=== PATIENT | female | born 2000 | race African-American/Black ===

== ENCOUNTER → 2020-10-01 08:49 | Outpatient (CLI) | payer OTHER, SELFPAY ==
--- NOTE | 2020-10-01 | DI.MRI.S_ITS ---
PROCEDURE: MR HEAD/BRAIN WO CON INDICATIONS: Chronic post-traumatic headache, not intractable TECHNIQUE: Noncontrast axial T1 spin echo, axial T2 fast spin echo, sagittal and axial FLAIR, coronal T2 fast spin echo, axial gradient echo, axial diffusion and ADC through the brain. COMPARISON: None. FINDINGS: Image quality: Excellent. CSF Spaces: Basal cisterns are patent. No extra-axial fluid collections. Ventricles are normal in size and shape. Brain: No intracranial masses or hemorrhage. Grady/white matter interface is normal. Brainstem appears normal. Diffusion-weighted images demonstrate no acute ischemic insult. No chronic ischemic insults. Normal intravascular flow voids are present. Skull and face: Calvarium has normal marrow signal. Orbits appear normal. Sinuses: Sinuses and mastoids are clear. IMPRESSION: 1. Negative brain MRI. No explanation for headache. 2. No acute process. No recent infarct. Dictated by: Lenny Lara M.D. on 10/01/2020 at 10:53 Approved by: Lenny Lara M.D. on 10/01/2020 at 10:54
== END ==
PROVIDERS: Family Provider Pediatrics; PCP Pediatrics; Referring Provider Pediatrics; Visit Provider Family Medicine
DX: G44.329 Chronic post-traumatic headache, not intractable (principal)
CPT/HCPCS: 70551

== ENCOUNTER → 2020-11-14 07:57 | Outpatient (CLI) | payer OTHER, SELFPAY ==
--- NOTE | 2020-11-14 07:59 | DI.US.S_ITS ---
PROCEDURE: US OB <= 14 WEEKS FETUS INDICATIONS: BLEEDING DURING . NO CARE OUTSIDE/PRIOR DATING DATA: Last menstrual period (LMP): Not available. LMP-based estimated date of delivery (SANDRA): Not available. First dating scan (date and location): n.a. . Estimated date of delivery (SANDRA) from first dating scan: n.a. TECHNIQUE: Real-time scanning was performed of the fetus and maternal pelvic organs, with image documentation. Endovaginal scanning was also performed to better visualize the fetus and maternal ovaries. COMPARISON: None. FINDINGS: There is no intrauterine gestational sac within the endometrial cavity. Uterus measures 7.2 x 3.6 x 4.5 cm. Endometrial complex measures 5 mm in thickness. Measurement variability in dating: +/- 4 weeks by LMP, +/- 7 days by mean sac diameter (use before 6 weeks gestation if crown-rump length not able to be measured), +/- 5 days by crown-rump length (up to 8 weeks 6 days gestation), +/- 7 days by crown-rump length (up to 13 weeks 6 days gestation). Maternal organs: Right ovary measures 3.8 x 1.2 x 2.3 cm. Left ovary measures 2.8 x 2.3 x 2.0 cm. There are ovarian follicles bilaterally. Limited images through the kidneys demonstrate no hydronephrosis. No free-fluid in cul-de-sac or adnexa. IMPRESSION: 1. No intrauterine or ectopic is identified. Please correlate with quantitative serum beta HCG. No findings to suggest retained product of conception. 2. Normal uterus and ovaries. Dictated by: Josseline Boothe M.D. on 11/14/2020 at 14:06 Approved by: Josseline Boothe M.D. on 11/14/2020 at 14:22
== END ==
LOC: US 07:58
PROVIDERS: Family Provider Pediatrics; PCP Pediatrics; Referring Provider Obstetrics & Gynecology; Visit Provider Obstetrics & Gynecology
DX: O20.9 Hemorrhage in early pregnancy, unspecified (principal); O09.30 Supervision of pregnancy with insufficient antenatal care, unspecified trimester
CPT/HCPCS: 76801; 76817

== ENCOUNTER → 2020-12-30 10:02 | Outpatient (CLI) | payer OTHER, SELFPAY ==
[2020-12-30 11:05] LABS: Add Manual Diff / Slide Review NO; Basophils Absolute Auto 0 /uL (0-100); Basophils Percent Auto 1.4 % (0-2); Eosinophils Absolute Auto 0 /uL (0-450); Hematocrit 36.3 % (36-46); Lymphocytes Absolute Auto 1200 /uL (1100-4500); Lymphocytes Percent Auto 45.9 % (25-40); Mean Corpuscular Hemoglobin 31.5 PG (26-34); Mean Corpuscular Volume 95.5 fL (80-100); Monocytes Absolute Auto 200 /uL (0-900); Neutrophils Absolute Auto 1100 /uL (1500-7000); Neutrophils Percent Auto 43.7 % (50-75); Platelet Count 225 X10^3/uL (150-400); Red Cell Distribution Width 12.6 % (11.6-14.8); White Blood Cell Count 2.5 X10^3/uL (4.5-11.0)
[2020-12-30 11:22] LABS: Alanine Aminotransferase 20 IU/L (<35); Albumin 4.8 g/dL (3.5-5.0); Albumin Globulin Ratio 1.2 (1.0-2.8); Alkaline Phosphatase 62 U/L (38-126); Aspartate Aminotransferase 35 IU/L (14-36); BUN Creatinine Ratio 8.8 (6-22); Bilirubin Total 0.4 mg/dL (0.2-1.3); Blood Urea Nitrogen 6 mg/dL (7-17); Calcium 9.9 mg/dL (8.4-10.2); Carbon Dioxide 27 mmol/L (22-32); Chloride 104 mmol/L (98-107); Estimated Glomerular Filt Rate > 60.0 mL/min (>60); Glucose 93 mg/dL (70-100); HEMOLYSIS < 15 (0-50); Potassium 3.9 mmol/L (3.4-5.1); Sodium 137 mmol/L (137-145); Total Protein 8.8 g/dL (6.3-8.2)
[2020-12-30 13:31] LABS: Erythrocyte Sedimentation Rate 18 MM/HR (0-20)
[2020-12-30 16:36] LABS: Hepatitis B Surface Antigen NEGATIVE s/c (NEGATIVE)
[2020-12-30 17:06] LABS: HIV 1 & 2 Ab/Ag 4th Gen Combo NEGATIVE (NEGATIVE); Hep C Virus Ab w/Reflex Quant NEGATIVE s/c (NEGATIVE)
[2020-12-31 04:50] LABS: HSV 2 IGG AB < 0.91 index (0.00-0.90)
[2020-12-31 08:08] LABS: RPR Screen Non Reactive (Non Reactive)
[2021-01-01 03:03] LABS: Chlamydia trachomatis NAA Negative (Negative); Neisseria gonorrhoeae NAA Negative (Negative)
[2021-01-02 20:13] LABS: HSV I/II IgM 1.06 Ratio (0.00-0.90)
== END ==
LOC: LAB 10:03
PROVIDERS: Family Provider Pediatrics; PCP Registered Nurse; Referring Provider Registered Nurse; Visit Provider Registered Nurse
DX: R10.2 Pelvic and perineal pain (principal); N92.6 Irregular menstruation, unspecified; Z11.3 Encounter for screening for infections with a predominantly sexual mode of transmission
CPT/HCPCS: 36415; 80053; 85025; 85651; 86592; 86694; 86695; 86696; 86803; 87340; 87389; 87491; 87591

== ENCOUNTER → 2021-01-02 12:44 | Outpatient (CLI) | payer OTHER, SELFPAY ==
--- NOTE | 2021-01-02 12:45 | DI.US.S_ITS ---
LIMITED ULTRASOUND OF RIGHT BREAST AND AXILLA: 01/02/2021 CLINICAL: Patient returns today to evaluate a focal asymmetry in the right breast. Comparison is made to exam dated: 06/28/2020 ultrasound - [facility]. Color flow and real-time ultrasound of the right breast 6 o'clock, and axilla regions were performed on the areas of interest. There is a 2.3 cm x 1.8 cm x 1 cm oval mass with a circumscribed margin in the right breast at 6 o'clock anterior depth. This oval mass is hypoechoic with a well-defined boundary. This abnormality is increased in size and correlates as palpated. Color flow imaging demonstrates that there is an adjacent vascularity. No significant abnormalities were seen sonographically in the right axilla. IMPRESSION: PROBABLY BENIGN The 2.3 cm x 1.8 cm x 1 cm oval mass in the right breast likely represents a fibroadenoma and is probably benign. Although the finding is increased in size, this appears similar in morphology. A follow-up ultrasound in 6 months is recommended to demonstrate stability. Alternatively if pathologic diagnosis is clinically warranted, the mass is amenable to ultrasound guided biopsy. This exam was interpreted at Station ID: [id number]. Electronically Signed By: Ponce lara/:01/02/2021 16:35:07 letter sent: Followup Recommended Ultrasound BI-RADS: 3 Probably benign
--- NOTE | 2021-01-02 12:45 | DI.US.S_ITS ---
PROCEDURE: US PELVIC COMPLETE INDICATIONS: CRAMPING TECHNIQUE: Real-time scanning was performed of the pelvic organs, with image documentation. Additional endovaginal scanning was necessary due to incomplete visualization of the adnexal and endometrial structures by transabdominal scanning. COMPARISON: [facility], CT, ABDOMEN/PELVIS WITH CONTRAST, 05/19/2017, 10:37. FINDINGS: Uterus: Uterus is normal in size at 8.2 x 5.7 x 3.9 cm. The endometrium measures 5 mm in combined thickness. A cystic focus can be seen within the endometrial stripe that measures up to 2 mm. Ovaries: The right ovary measures 4.1 x 3.1 x 2.1 cm and demonstrates a complex cyst with surrounding increased vascularity that measures 2.2 x 2 x 1.6 cm. The left ovary measures 3.1 x 2.1 x 1.5 cm and demonstrates a normal sonographic appearance. No adnexal masses are seen on either side. Normal appearing arterial waveforms are confirmed to each ovary. Other: No pathologic free abdominal or pelvic fluid. IMPRESSION: Likely right ovarian hemorrhagic cyst, which may be related to a corpus luteum. At clinical discretion, a followup pelvic ultrasound could be considered in 6 weeks to assure resolution/ improvement. A tiny 2 mm cystic focus is seen along the endometrial stripe, which may be related to an incomplete spontaneous in this patient with a history of a positive home test and a negative clinic urine test. Close clinical followup, with serial beta-hCG and serial ultrasound are recommended, if clinically appropriate. Dictated by: Bishop Serrano M.D. on 01/02/2021 at 13:25 Approved by: Bishop Serrano M.D. on 01/02/2021 at 13:28
--- NOTE | 2021-01-02 12:45 | DI.US.S_ITS ---
LIMITED ULTRASOUND OF LEFT BREAST AND AXILLA: 01/02/2021 CLINICAL: Patient returns today to evaluate focal asymmetries in the left breast. Comparison is made to exams dated: 06/28/2020 ultrasound and 06/28/2020 ultrasound - [facility]. Color flow and real-time ultrasound of the left breast axilla were performed on the areas of interest. There is a 3.1 cm x 2.5 cm x 1.6 cm oval mass with a circumscribed margin in the left breast at 6 o'clock in the retroareolar region. This oval mass is hypoechoic. This abnormality is increased in size. Color flow imaging demonstrates that there is no vascularity present. There also is a 1.5 cm x 1.3 cm x 0.8 cm oval mass with an indistinct and circumscribed margin in the left breast at 2 o'clock middle depth. This oval mass is hypoechoic. This abnormality is not significantly changed. Color flow imaging demonstrates that there is no vascularity present. Additionally, there is a 3 cm x 2.8 cm x 1.8 cm oval mass with a circumscribed margin in the left breast at 3 o'clock posterior depth 9 cm from the nipple. This oval mass is hypoechoic. This abnormality is not significantly changed. Color flow imaging demonstrates that there is no vascularity present. In addition, there is a 1.9 cm x 1.9 cm x 1.6 cm oval mass with a circumscribed margin in the left breast at 3 o'clock posterior depth 8 cm from the nipple. This oval mass is hypoechoic. This abnormality is increased in size. Color flow imaging demonstrates that there is no vascularity present. In addition, there is a 1.3 cm x 1.1 cm x 1.1 cm oval mass with a circumscribed margin in the left breast at 3 o'clock middle depth 8 cm from the nipple. This oval mass is hypoechoic. This abnormality is not significantly changed. Color flow imaging demonstrates that there is no vascularity present. No significant abnormalities were seen sonographically in the left axilla. 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 There is slight interval increase in size of the masses at 6:00 and 3:00 8 cm from the nipple. Continued followup is recommended to demonstrate stability. A follow-up ultrasound in 6 months is recommended to demonstrate stability. This exam was interpreted at Station ID: [id number]. Electronically Signed By: Ponce Carmen M.D. [email or web address]/:01/02/2021 16:46:44 letter sent: Followup Recommended Ultrasound BI-RADS: 3 Probably benign
== END ==
PROVIDERS: Family Provider Pediatrics; PCP Registered Nurse; Referring Provider Registered Nurse; Visit Provider Registered Nurse
DX: N92.6 Irregular menstruation, unspecified (principal); R10.2 Pelvic and perineal pain; D24.2 Benign neoplasm of left breast; D24.1 Benign neoplasm of right breast
CPT/HCPCS: 76642; 76856

== ENCOUNTER → 2021-01-06 14:33 | Outpatient (CLI) | payer OTHER, SELFPAY ==
[2021-01-06 16:25] LABS: HCG Quantitative /Beta subunit < 2.4 mIU/mL
== END ==
PROVIDERS: Obstetrics & Gynecology; Family Provider Pediatrics; PCP Registered Nurse; Referring Provider Registered Nurse; Visit Provider Registered Nurse
DX: O03.9 Complete or unspecified spontaneous abortion without complication (principal)
CPT/HCPCS: 36415; 84702